=== PATIENT | female | born 1985 | race Two or more races ===

== ENCOUNTER 2017-08-17 19:04 | Emergency (ER) | payer OTHER ==
[2017-08-17] MEDS ORDERED: NS 500 ML IV ONE (19:16)
--- NOTE | 2017-08-17 19:16 | EDPHY ---
H & P Time Seen by Provider: 08/17/17 19:05 HPI/ROS: CHIEF COMPLAINT: Syncope HISTORY OF PRESENT ILLNESS: Patient is a 32-year-old female with a history of traumatic brain injury who presents to the emergency department after having a syncopal episode. She has had multiple syncopal episodes previously. Tonight she was at work and laying down. She sat up and felt as though she developed "vertigo." She felt the sound "close in" and she couldn't hear her friend speaking. Next thing she knew she had fainted onto the bed. Her friend cought her and she did not hit the floor. She denies any trauma. She now has right- sided headache that is mild. She has no weakness or numbness. No fevers or chills. No neck pain. REVIEW OF SYSTEMS: My complete review of systems is negative except as mentioned in the HPI. Past Medical/Surgical History: Includes traumatic brain injury, syncope Smoking Status: Light smoker Physical Exam: Vitals noted GENERAL: Well-appearing, in no acute distress, obese, alert. HEENT: Eyes normal to inspection, normal pharynx, no signs of dehydration. No visible trauma. NECK: No thyromegaly, no lymphadenopathy, supple. No C-spine tenderness. RESPIRATORY: Clear to auscultation bilaterally, no rales, rhonchi or wheezing. CVS: Regular rate and rhythm, no rubs, murmurs, or gallops. ABDOMEN: Soft, nontender, nondistended, no organomegaly. BACK: Normal to inspection, no CVA tenderness. No spinal tenderness. SKIN: Normal color, no rash, warm, dry. No pallor. EXTREMITIES: Atraumatic. No pedal edema, no calf tenderness, no Homans sign or cords, no joint swelling. NEURO/PSYCH: Higher functions: Alert and Oriented x3. Normal speech and cognition. Normal mood and affect. Cranial nerves: Normal as tested. Cerebellar: Normal as tested. Good finger to nose, good [id number], normal gait. Peripheral exam: Normal motor exam. Normal sensation. Normal reflexes. Constitutional: Initial Vital Signs Temperature (C) 36.8 C 08/17/17 19:18 Heart Rate 74 08/17/17 19:18 Respiratory Rate 18 08/17/17 19:18 Blood Pressure 137/80 H 11/01/17 19:18 O2 Sat (%) 94 08/17/17 19:18 O2 Delivery Mode Room Air Allergies/Adverse Reactions: No Known Allergies Allergy (Unverified 02/27/11 15:03) Home Medications: Medication Instructions Recorded Atharax 02/27/11 traMADol 04/27/16 Effexor 08/17/17 Protonix 08/17/17 Medical Decision Making - Diagnostics Imaging Results: Imaging Impressions Head CT 08/17/17 19:18 Impression: No acute abnormalities. Dr. Joel discussed these findings by telephone with HAIM SANDERS on 08/17 at 20:56 hours. ED Course/Re-evaluation: I met EMS on arrival. I took report from the wireless sales representative. Glucose was normal. Field EKG was unremarkable. In the emergency department I discussed possible etiologies with the patient. I answered all her questions. Laboratory studies , head CT and EKG were ordered. I reviewed the patient's laboratory studies. They were unremarkable. She is not anemic. is negative. EKG shows normal sinus rhythm, normal rate, normal axis, normal intervals. There are no ST or T-wave abnormalities. EKG is normal as interpreted by me. Head CT: Please refer the dictated report. No acute disease noted. Patient was given Toradol 30 mg IV for her headache. Discussed the result with the patient. I answered all her questions. She is given warnings prior to leaving. She will return with worsening symptoms. Differential Diagnosis: My differential includes but is not limited to dysrhythmia, ACS, subarachnoid hemorrhage, subdural hematoma, epidural hematoma, CVA, dissection, aneurysm - Data Points Laboratory Results: Laboratory Results 08/17/17 19:59 08/17/17 19:59 08/17/17 08/17/17 08/17/17 19:59 19:59 19:59 WBC 9.92 10^3/uL H 10^3/uL (3.80-9.50) RBC 4.19 10^6/uL 10^6/uL (4.18-5.33) Hgb 13.6 g/dL g/dL (12.6-16.3) Hct 39.8 % % (38.0-47.0) MCV 95.0 fL fL (81.5-99.8) MCH 32.5 pg pg (27.9-34.1) MCHC 34.2 g/dL g/dL (32.4-36.7) RDW 13.8 % % (11.5-15.2) Plt Count 303 10^3/uL 10^3/uL (150-400) MPV 9.7 fL fL (8.7-11.7) Neut % (Auto) 68.3 % % (39.3-74.2) Lymph % (Auto) 25.9 % % (15.0-45.0) [place] % (Auto) 4.3 % L % (4.5-13.0) Eos % (Auto) 0.6 % % (0.6-7.6) Baso % (Auto) 0.4 % % (0.3-1.7) Nucleat RBC Rel Count 0.0 % % (0.0-0.2) Absolute Neuts (auto) 6.77 10^3/uL H 10^3/uL (1.70-6.50) Absolute Lymphs (auto) 2.57 10^3/uL 10^3/uL (1.00-3.00) Absolute Monos (auto) 0.43 10^3/uL 10^3/uL (0.30-0.80) Absolute Eos (auto) 0.06 10^3/uL 10^3/uL (0.03-0.40) Absolute Basos (auto) 0.04 10^3/uL 10^3/uL (0.02-0.10) Absolute Nucleated RBC 0.00 10^3/uL 10^3/uL (0-0.01) Immature Gran % 0.5 % % (0.0-1.1) Immature Gran # 0.05 10^3/uL 10^3/uL (0.00-0.10) Sodium 138 mEq/L mEq/L (134-144) Potassium 4.2 mEq/L mEq/L (3.5-5.2) Chloride 104 mEq/L mEq/L (97-110) Carbon Dioxide 21 mEq/l L mEq/l (22-31) Anion Gap 13 mEq/L mEq/L (8-16) BUN 8 mg/dL mg/dL (7-23) Creatinine 0.6 mg/dL mg/dL (0.6-1.0) Estimated GFR > 60 Glucose 94 mg/dL mg/dL (70-100) Calcium 9.5 mg/dL mg/dL (8.5-10.4) Beta HCG, Qual NEGATIVE Medications Given: Discontinued Medications Sodium Chloride (Ns) 500 mls @ 1,000 mls/hr IV EDNOW ONE PRN Reason: Protocol Stop: 08/17/17 19:45 Last Admin: 08/17/17 19:36 Dose: 500 mls Departure - Departure Disposition: Home, Routine, Self-Care Clinical Impression: Syncope Qualifiers: Syncope type: unspecified Qualified Code(s): R55 - Syncope and collapse Condition: Good Instructions: Syncope (ED) Additional Instructions: Return with repeat episodes of syncope, headache, neck pain, weakness, numbness or any other concerns. Referrals: Thea King MD [Medical Doctor] - 5-7 days, if not improved
[2017-08-17 19:24] VITALS: TEMP 98.2
--- NOTE | 2017-08-17 19:53 | CPEKG ---
Heart Rate: 78 RR Interval: 769 P-R Interval: 144 QRSD Interval: 96 QT Interval: 392 QTC Interval: 447 P [place]: 41 QRS [place]: 37 T Wave [place]: 35 EKG Severity - NORMAL ECG - EKG Impression: SINUS RHYTHM Electronically Signed By: Radha Gibbons 17-Aug-2017 20:57:49
[2017-08-17 20:17] LABS: PLATELET COUNT 303 10^3/uL (150-400)
[2017-08-17] MEDS ORDERED: KETOROLAC 30 MG/1 ML SDV IVP ONE (20:58)
[2017-08-17 21:15] VITALS: BP 140/88; PULSE 71; RESP 16; O2SAT 95
== END 2017-08-17 21:25 | disposition home or self-care (01) ==
LOC: EDUNIT# → MERGE 19:04
DX: R55 Syncope and collapse (principal); F17.200 Nicotine dependence, unspecified, uncomplicated; E86.9 Volume depletion, unspecified
CPT/HCPCS: 96374; J1885